=== PATIENT | male | born 2000 | race Caucasian/White ===

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

== ENCOUNTER 2023-10-29 11:46 | Emergency (ER) | payer BC ==
[2023-10-29] MEDS ORDERED: Ibuprofen 200 MG TAB ONE (12:32)
[2023-10-29] MEDS ORDERED: predniSONE 20 MG TAB ONE (12:33)
[2023-10-29] MEDS ORDERED: HYDROcodone/Acetaminophen 5/325 mg Tablet ONE (12:33)
== END 2023-10-29 12:53 | disposition home or self-care (01) ==
LOC: ERS 11:46
DX: S90.822A Blister (nonthermal), left foot, initial encounter (principal); S90.821A Blister (nonthermal), right foot, initial encounter; L27.2 Dermatitis due to ingested food; J45.909 Unspecified asthma, uncomplicated; X58.XXXA Exposure to other specified factors, initial encounter; Z55.0 Illiteracy and low-level literacy
CPT/HCPCS: 99283; J7512